=== PATIENT | male | born 1980 | race Hispanic/Latino ===

== ENCOUNTER 2019-04-08 00:28 | Emergency (ER) | payer SELFPAY ==
[2019-04-08 00:36] VITALS: BP 162/96
[2019-04-08 01:09] LABS: Basophils % (Auto) 0.2 % (0.0-1.8); Eosinophils # (Auto) 0.2 K/mm3 (0.0-0.4); Eosinophils % (Auto) 1.3 % (0.0-4.3); Hematocrit 48.4 % (35.5-45.6); Hemoglobin 16.3 gm/dl (11.8-15.2); Lymphocytes # (Auto) 1.8 K/mm3 (1.2-5.4); Lymphocytes % (Auto) 15.3 % (13.4-35.0); Mean Corpuscular HGB Conc 34 % (32-34); Mean Corpuscular Volume 94 fl (84-94); Monocytes # (Auto) 0.8 K/mm3 (0.0-0.8); Monocytes % (Auto) 6.9 % (0.0-7.3); Platelet Count 187 K/mm3 (140-440); Red Blood Count 5.17 M/mm3 (3.65-5.03); Red Cell Distribution Width 13.8 % (13.2-15.2)
[2019-04-08 01:36] LABS: Alanine Aminotransferase 31 units/L (7-56); BUN/Creatinine Ratio 10; Blood Urea Nitrogen 9 mg/dL (9-20); Calcium 8.9 mg/dL (8.4-10.2); Hemolysis Index 12
[2019-04-08] MEDS ORDERED: ZOFRAN IV ONE (02:06)
[2019-04-08] MEDS ORDERED: NACL 0.9% 1000 ML 1,000 ML IV ONE (02:06)
[2019-04-08] MEDS ORDERED: TORADOL IV ONE (02:06)
--- NOTE | 2019-04-08 02:38 | Emergency Department Report ---
ED Abdominal Pain HPI - General Chief Complaint: Abdominal Pain Stated Complaint: LOWER BACK PAIN LT AND RT SIDE PAIN Time Seen by Provider: 04/08/19 02:05 Source: patient Mode of arrival: Ambulatory Limitations: No Limitations - History of Present Illness Initial Comments: pt is a 38 y/o male who present for bilat flank pain 7/10 aching without dysuria x 2 days , denies hematuria no fever or chills no n/v MD Complaint: abdominal pain, flank pain Onset/Timin -: days(s) Location: L flank, R flank Radiation: L flank, R flank Migration to: L flank, R flank Severity scale (0 -10): 5 Quality: aching Consistency: constant Improves With: nothing Worsens With: nothing Associated Symptoms: nausea. denies: vomiting, diarrhea, fever, chills, constip ation, dysuria, melena - Related Data Previous Rx's Medication Instructions Recorded Last Taken Type Omeprazole 40 mg PO DAILY #30 capsule. 04/08/19 Unknown Rx Sucralfate [Carafate] 1 gm PO ACHS 7 Days #28 tablet 04/08/19 Unknown Rx traMADol [Ultram] 50 mg PO Q6H PRN #12 tablet 04/08/19 Unknown Rx Allergies Allergy/AdvReac Type Severity Reaction Status Date / Time No Known Allergies Allergy Unverified 04/08/19 00:29 ED Review of Systems ROS: Stated complaint: LOWER BACK PAIN LT AND RT SIDE PAIN Other details as noted in HPI Constitutional: denies: chills, fever Eyes: denies: eye pain, eye discharge, vision change ENT: denies: ear pain, throat pain Respiratory: denies: cough, shortness of breath, wheezing Cardiovascular: denies: chest pain, palpitations Endocrine: no symptoms reported Gastrointestinal: abdominal pain, nausea. denies: vomiting, diarrhea, constipation, hematemesis, melena, hematochezia Genitourinary: denies: urgency, dysuria, frequency, hematuria, discharge, testicular pain, testicular mass Musculoskeletal: back pain (bilat flank pain). denies: joint swelling, arthralgia Skin: denies: rash, lesions Neurological: denies: headache, weakness, paresthesias Psychiatric: denies: anxiety, depression Hematological/Lymphatic: denies: easy bleeding, easy bruising ED Past Medical Hx - Past Medical History Previous Medical History?: No - Surgical History Past Surgical History?: Yes Additional Surgical History: hernia repair - Social History Smoking Status: Current Every Day Smoker Substance Use Type: None - Medications Home Medications: Home Medications Medication Instructions Recorded Confirmed Last Taken Type Omeprazole 40 mg PO DAILY #30 capsule. 04/08/19 Unknown Rx Sucralfate [Carafate] 1 gm PO ACHS 7 Days #28 tablet 04/08/19 Unknown Rx traMADol [Ultram] 50 mg PO Q6H PRN #12 tablet 04/08/19 Unknown Rx ED Physical Exam - General Limitations: No Limitations General appearance: alert, in no apparent distress - Head Head exam: Present: atraumatic, normocephalic - Eye Eye exam: Present: normal appearance, PERRL, EOMI Pupils: Present: normal accommodation - ENT ENT exam: Present: mucous membranes moist. Absent: TM's normal bilaterally - Neck Neck exam: Present: normal inspection, full ROM. Absent: tenderness, lymphadenopathy, thyromegaly - Respiratory Respiratory exam: Present: normal lung sounds bilaterally. Absent: respiratory distress, rhonchi, chest wall tenderness - Cardiovascular Cardiovascular Exam: Present: regular rate, normal rhythm, normal heart sounds. Absent: systolic murmur, diastolic murmur, rubs, gallop - GI/Abdominal GI/Abdominal exam: Present: soft, tenderness (bilat flank tenderness to palpation), normal bowel sounds. Absent: distended, guarding, rebound, rigid, bruit, hernia - Rectal Rectal exam: Present: deferred - Extremities Exam Extremities exam: Present: normal inspection, full ROM, normal capillary refill. Absent: tenderness, pedal edema, joint swelling, calf tenderness - Back Exam Back exam: Present: normal inspection, full ROM. Absent: tenderness, CVA tenderness (R), CVA tenderness (L), muscle spasm, paraspinal tenderness, vertebral tenderness, rash noted - Expanded Back Exam Expanded Back exam: Absent: saddle anesthesia Back exam: Negative Straight Leg Raising: Left, Right - Neurological Exam Neurological exam: Present: alert, oriented X3, CN II-XII intact, normal gait, reflexes normal. Absent: motor sensory deficit - Psychiatric Psychiatric exam: Present: normal affect, normal mood - Skin Skin exam: Present: warm, dry, intact, normal color. Absent: rash ED Course Vital Signs 04/08/19 00:29 Temperature 98 F Pulse Rate 89 Respiratory 18 Rate Blood Pressure 162/96 O2 Sat by Pulse 98 Oximetry ED Medical Decision Making - Lab Data Result diagrams: 04/08/19 00:54 04/08/19 00:54 - Radiology Data Radiology results: report reviewed, image reviewed Ordering Physician: LUIS CARLOS AMADOR NP Date of Service: 04/08/19 Procedure(s): CT abdomen pelvis wo con Accession Number(s): [id number] cc: LUIS CARLOS AMADOR NP CT ABDOMEN AND PELVIS WITHOUT CONTRAST HISTORY: Right flank pain since yesterday morning. COMPARISON: No relevant prior imaging study available. TECHNIQUE: Axial, coronal and sagittal CT imaging of the abdomen and pelvis was performed without contrast. Lack of intravenous contrast limits evaluation of the vascular and solid organs. All CT scans at this location are performed using CT dose reduction for ALARA by means of automated exposure control. FINDINGS: LOWER CHEST: No significant abnormality. LIVER: No significant abnormality. BILIARY: No significant abnormality. PANCREAS: No significant abnormality. SPLEEN: No significant abnormality. ADRENALS: No significant abnormality. KIDNEYS AND URETERS: No significant abnormality. GI TRACT: There is a small hiatal hernia without associated inflammation. The stomach is otherwise unremarkable. No significant abnormality of the small bowel. There is mild sigmoid diverticulosis without evidence of diverticulitis. Unremarkable appendix. PERITONEUM: No free fluid. No free air. No fluid collection. LYMPH NODES: No significant adenopathy. VASCULATURE: No significant abnormality. URINARY BLADDER: No significant abnormality. REPRODUCTIVE ORGANS: No significant abnormality. ADDITIONAL FINDINGS: Changes from prior hernia repair along the lower abdomen/pelvis appear unremarkable. SKELETAL SYSTEM: No significant abnormality. IMPRESSION: No acute abnormality of the abdomen or pelvis. Signer Name: Juvenal Boucher MD Signed: 04/08/2019 3:42 AM Workstation Name: [id number] Transcribed By: ISABEL Dictated By: Juvenal Boucher MD Electronically Authenticated By: Juvenal Boucher MD Signed Date/Time: 04/08/19341 DD/ 7 TD/TT: - Medical Decision Making symptoms improved , ct abd pelvis, Diverticulosis no obstruction no mass no plan , carafate , omeprazole, ultram follow up with GI in 1-2 days return to ed if symptoms worsen. pt verbalzied agreement und understanding of discharge plan. Critical care attestation.: If time is entered above; I have spent that time in minutes in the direct care of this critically ill patient, excluding procedure time. ED Disposition Clinical Impression: Diverticulosis Abdominal pain Qualifiers: Abdominal location: generalized Qualified Code(s): R10.84 - Generalized abdominal pain Disposition: TO HOME OR SELFCARE Is pt being admited?: No Does the pt Need Aspirin: No Condition: Stable Instructions: Diverticulosis (ED), Diverticulosis Diet (ED) Prescriptions: Sucralfate [Carafate] 1 gm PO ACHS 7 Days #28 tablet Omeprazole 40 mg PO DAILY #30 capsule. traMADol [Ultram] 50 mg PO Q6H PRN #12 tablet PRN Reason: Pain , Severe (7-10) Referrals: YAZAN SMITH MD [Staff Physician] - 3-5 Days [facility] [Outside] - 3-5 Days Forms: Work/School Release Form(ED) Time of Disposition: 04:56
--- NOTE | 2019-04-08 03:46 | Cat Scan Report ---
CT ABDOMEN AND PELVIS WITHOUT CONTRAST HISTORY: Right flank pain since yesterday morning. COMPARISON: No relevant prior imaging study available. TECHNIQUE: Axial, coronal and sagittal CT imaging of the abdomen and pelvis was performed without co ntrast. Lack of intravenous contrast limits evaluation of the vascular and solid organs. All CT sca ns at this location are performed using CT dose reduction for ALARA by means of automated exposure co ntrol. FINDINGS: LOWER CHEST: No significant abnormality. LIVER: No significant abnormality. BILIARY: No significant abnormality. PANCREAS: No significant abnormality. SPLEEN: No significant abnormality. ADRENALS: No significant abnormality. KIDNEYS AND URETERS: No significant abnormality. GI TRACT: There is a small hiatal hernia without associated inflammation. The stomach is otherwise un remarkable. No significant abnormality of the small bowel. There is mild sigmoid diverticulosis witho ut evidence of diverticulitis. Unremarkable appendix. PERITONEUM: No free fluid. No free air. No fluid collection. LYMPH NODES: No significant adenopathy. VASCULATURE: No significant abnormality. URINARY BLADDER: No significant abnormality. REPRODUCTIVE ORGANS: No significant abnormality. ADDITIONAL FINDINGS: Changes from prior hernia repair along the lower abdomen/pelvis appear unremarka ble. SKELETAL SYSTEM: No significant abnormality. IMPRESSION: No acute abnormality of the abdomen or pelvis. Signer Name: Juvenal Boucher MD Signed: 04/08/2019 3:42 AM Workstation Name: [id number]
[2019-04-08 05:08] LABS: Bilirubin,Urine NEG (Negative); Blood,Urine NEG (Negative); Color,Urine Yellow (Yellow); Mucus,Urine 3+ /HPF; Protein,Urine <15 mg/dL mg/dL (Negative); Urobilinogen,Urine < 2.0 mg/dL (<2.0)
== END 2019-04-08 05:38 | disposition home or self-care (01) ==
LOC: ED 00:28
DX: K57.30 Diverticulosis of large intestine without perforation or abscess without bleeding (principal); F17.200 Nicotine dependence, unspecified, uncomplicated; Z98.890 Other specified postprocedural states; Z79.899 Other long term (current) drug therapy
CPT/HCPCS: 36415; 74176; 80053; 81001; 85025; 96374; 96375; 99284; J1885; J2405; J7030; 96361